=== PATIENT | female | born 1995 | race Caucasian/White ===

== ENCOUNTER 2024-01-18 05:47 | Inpatient (IN) | payer OTHER ==
[2024-01-18 06:09] VITALS: RESP 16
[2024-01-18] MEDS ORDERED: TERBUTALINE 1 MG/ML VIAL SQ PRN (06:09)
[2024-01-18] MEDS ORDERED: OXYTOCIN 10 UNIT/ML 1 ML VIAL IM PRN (06:09)
[2024-01-18] MEDS ORDERED: miSOPROStoL 200 MCG TAB PO PRN (06:09)
[2024-01-18] MEDS ORDERED: TRANEXAMIC 1,000 MG/100ML-NACL 1,000 MG in EMPTY BAG 1 BAG IV PRN (06:09)
[2024-01-18] MEDS ORDERED: CARBOPROST TROMETHAMINE 250 MCG/ML 1 ML AMP IM PRN (06:09)
[2024-01-18] MEDS ORDERED: METHYLERGONOVINE 0.2 MG/ML 1 ML AMP IM PRN (06:09)
[2024-01-18] MEDS ORDERED: miSOPROStoL 200 MCG TAB RECTAL PRN (06:09)
[2024-01-18 06:23] LABS: Basophils % (A) 0 %; Eosinophils # (A) 0.1 k/uL (0-0.7); Eosinophils % (A) 1 %; HCT 34.4 % (34.0-46.0); HGB 11.9 gm/dL (11.4-16.0); Lymphocytes # (A) 1.5 k/uL (1.0-4.8); Lymphocytes % (A) 20 %; MCH 29.8 pg (25.0-35.0); MCHC 34.6 g/dL (31.0-37.0); MCV 86.1 fL (80.0-100.0); Mean Platelet Volume 7.7; Monocytes # (A) 0.3 k/uL (0-1.0); Monocytes % (A) 4 %; Neutrophils # (A) 5.4 k/uL (1.3-7.7); Neutrophils % (A) 73 %; Platelet Count 187 k/uL (150-450); RBC 3.99 m/uL (3.80-5.40); RDW 13.3 % (11.5-15.5); WBC 7.4 k/uL (3.8-10.6)
[2024-01-18] MEDS: LACTATED RINGERS 1,000 ML IV SCH (06:25)
[2024-01-18] MEDS: OXYTOCIN 30 UNITS/500 ML NS 30 UNIT in SALINE 1 500ML.BAG IV SCH (06:26)
--- NOTE | 2024-01-18 08:06 | P.HPOB ---
History of Present Illness H&P Date: 01/18/24 Chief Complaint: induction of labor 28 year old presents at 39 weeks 4 day for induction of labor. Her cervix is 1/70/-2 and she is not srinivasa. heart tones category 1. Review of Systems All systems: negative Constitutional: Denies chills, Denies fever Eyes: denies blurred vision, denies pain Ears, nose, mouth and throat: Denies headache, Denies sore throat Cardiovascular: Denies chest pain, Denies shortness of breath Respiratory: Denies cough Gastrointestinal: Denies abdominal pain, Denies diarrhea, Denies nausea, Denies vomiting Genitourinary: Denies dysuria, Denies hematuria Musculoskeletal: Denies myalgias Integumentary: Denies pruritus, Denies rash Neurological: Denies numbness, Denies weakness Psychiatric: Denies anxiety, Denies depression Endocrine: Denies fatigue, Denies weight change Past Medical History Past Medical History: No Reported History History of Any Multi-Drug Resistant Organisms: None Reported Additional Past Surgical History / Comment(s): leep procedure 3 years ago Past Anesthesia/Blood Transfusion Reactions: No Reported Reaction Past Psychological History: No Psychological Hx Reported Smoking Status: Vaper Past Drug Use History: None Reported Medications and Allergies Home Medications Medication Instructions Recorded Confirmed Type No Known Home Medications 01/18/24 01/18/24 History Allergies Allergy/AdvReac Type Severity Reaction Status Date / Time No Known Allergies Allergy Verified 01/18/24 06:03 Exam Osteopathic Statement: *. No significant issues noted on an osteopathic structural exam other than those noted in the History and Physical/Consult. Vital Signs Temp Pulse Resp BP Pulse Ox 01/18/24 06:02 97.0 F L 95 16 139/82 98 Intake and Output 01/17/24 01/18/24 01/18/24 22:59 06:59 14:59 Other: Weight 97.069 kg HEart: RRR Lungs: CTAB Abdomen: soft, nontender Extremeties: neg genoveva's Results Result Diagrams: 01/18/24 06:10 Assessment and Plan (1) 39 weeks gestation of Current Visit: Yes Status: Acute Code(s): Z3A.39 - 39 WEEKS GESTATION OF SNOMED Code(s): 15391223 (2) Elective induction of labor planned Current Visit: Yes Status: Acute Code(s): [id number] - SNOMED Code(s): 438032585 Plan: 1. induction of labor with amniotomy and pitocin 2. anticipate normal vaginal delivery
[2024-01-18] MEDS: BUTORPHANOL 1 MG/ML 1 ML VIAL IV PRN (10:35)
[2024-01-18] MEDS: LIDOCAINE 0.5% (PF) 5 MG/ML (50 ML SDV) SQ PRN (14:15)
[2024-01-18] MEDS ORDERED: HYDROCORTISONE 2.5% RECTAL CREAM 30 GM TUBE RECTAL PRN (14:28)
[2024-01-18] MEDS ORDERED: LANOLIN CREAM 1 GM TUBE TOPICAL PRN (14:28)
[2024-01-18] MEDS ORDERED: SIMETHICONE 80 MG CHEWABLE PO PRN (14:28)
[2024-01-18] MEDS ORDERED: ZOLPIDEM 5 MG TAB PO PRN (14:28)
[2024-01-18] MEDS ORDERED: diphenhydrAMINE 50 MG/ML 1 ML VIAL IVP PRN ×2 (14:28)
[2024-01-18] MEDS ORDERED: diphenhydrAMINE 50 MG CAP PO PRN (14:28)
[2024-01-18] MEDS ORDERED: diphenhydrAMINE 25 MG CAP PO PRN (14:28)
--- NOTE | 2024-01-18 14:28 | P.PROBDLV ---
Vaginal Delivery Note - . Vaginal Delivery Note: 28 year old presents at 39 weeks 4 day for induction of labor. Her cervix is 1/70/-2 and she is not srinivasa. heart tones category 1. Amniotomy performed at 7:40 AM and clear fluid noted. Pitocin had already been started. She started to get uncomfortable around 10 AM and cervix was completely dilated by 1407. She pushed and motor viable female over intact perineum at 1409. Head delivered OA, anterior shoulder delivered gentle downward guidance for by posterior shoulder and rest of body. Nose and mouth bulb suctioned, cord clamped and cut, infant placed on mother's abdomen. Apgars 9, 9, weight 6 lbs. 13 oz. Placenta delivered spontaneously, intact with three-vessel cord at 1414. Vagina, cervix, perineum inspected. First-degree midline laceration was repaired with 3-0 Vicryl. Estimated blood loss 250 mL. Mother and baby in stable condition.
[2024-01-18] MEDS ORDERED: OXYTOCIN 30 UNITS/500 ML NS 30 UNIT in SALINE 1 500ML.BAG IV SCH (14:30)
[2024-01-18] MEDS: IBUPROFEN 800 MG TAB PO SCH (14:46)
[2024-01-18] MEDS: BENZOCAINE/MENTHOL SPRAY 1 GM/SPRAY AEROSOL TOPICAL PRN (14:48)
[2024-01-18] MEDS: ACETAMINOPHEN TAB 500 MG TAB PO SCH (18:16)
[2024-01-18] MEDS: SENNOSIDES-DOCUSATE SODIUM 1 EACH TAB PO SCH (20:21)
[2024-01-19 00:14] VITALS: TEMP 98.6
[2024-01-19 08:03] VITALS: BP 132/88; PULSE 82
[2024-01-19 08:36] LABS: Basophils % (A) 0 %; Eosinophils % (A) 0 %; HCT 30.3 % (34.0-46.0); HGB 10.4 gm/dL (11.4-16.0); Lymphocytes # (A) 1.8 k/uL (1.0-4.8); Lymphocytes % (A) 17 %; MCH 30.6 pg (25.0-35.0); MCHC 34.3 g/dL (31.0-37.0); MCV 89.1 fL (80.0-100.0); Mean Platelet Volume 7.2; Monocytes # (A) 0.5 k/uL (0-1.0); Monocytes % (A) 4 %; Neutrophils # (A) 8.2 k/uL (1.3-7.7); Neutrophils % (A) 77 %; Platelet Count 202 k/uL (150-450); RDW 13.2 % (11.5-15.5); WBC 10.7 k/uL (3.8-10.6)
--- NOTE | 2024-01-19 08:43 | P.DS ---
Providers Date of admission: 01/18/24 05:47 Expected date of discharge: 01/19/24 Attending physician: Magaly Tang Primary care physician: Stated None - Discharge Diagnosis(es) (1) 39 weeks gestation of Current Visit: Yes Status: Resolved (2) Elective induction of labor planned Current Visit: Yes Status: Resolved (3) Status post normal vaginal delivery Current Visit: Yes Status: Acute Hospital Course: Patient presented for induction of labor. She underwent a normal vaginal delivery. course was uneventful. She denies nausea, vomiting, chest pain, shortness of breath or calf pain. Patient will be discharged home day #1 in stable condition to follow-up with me in 6 weeks. Plan - Discharge Summary New Discharge Prescriptions: New Ibuprofen [Motrin] 800 mg PO Q8HR #30 tab Discharge Medication List Ibuprofen [Motrin] 800 mg PO Q8HR #30 tab 01/19/24 [Rx] Follow up Appointment(s)/Referral(s): Magaly Tang DO [Doctor of Osteopathic Medicine] - 02/29/24 9:45 am Discharge Disposition: HOME SELF-CARE
== END 2024-01-19 15:00 | disposition home or self-care (01) | DRG 560 ==
LOC: 4FBP 05:47
PROVIDERS: ADMIT Obstetrics & Gynecology; ATTEND Obstetrics & Gynecology
PROC: 10E0XZZ Delivery of Products of Conception, External Approach (ICD-10-PCS; principal; 2024-01-18)
PROC: 0HQ9XZZ Repair Perineum Skin, External Approach (ICD-10-PCS; principal; 2024-01-18)
PROC: 3E033VJ Introduction of Other Hormone into Peripheral Vein, Percutaneous Approach (ICD-10-PCS; principal; 2024-01-18)
DX: O99.334 Smoking (tobacco) complicating childbirth (principal); F17.290 Nicotine dependence, other tobacco product, uncomplicated; Z3A.39 39 weeks gestation of pregnancy; O70.0 First degree perineal laceration during delivery; Z79.1 Long term (current) use of non-steroidal anti-inflammatories (NSAID); Z37.0 Single live birth
CPT/HCPCS: 85025; 86850; 86900; 86901